=== PATIENT | female | born 1975 | race Two or more races ===

== ENCOUNTER 2020-06-22 09:34 | Outpatient (CLI) | payer OTHER | END 2020-06-22 09:38 | disposition home or self-care (01) | LOC: SONOGRAMA 09:34 | PROVIDERS: ATTEND Pathology Anatomic Pathology & Clinical Pathology | DX: E04.2 Nontoxic multinodular goiter (principal) ==

== ENCOUNTER 2023-06-22 18:13 | Emergency (ER) | payer OTHER ==
[~2023-06-22] VITALS: Ht 167.6 cm; Wt 90.7 kg
[~2023-06-22 18:13] MED LIST: NIFEDIPINE20 MG PO
[2023-06-22] MEDS ORDERED: DEXAMETHASONE SODIUM PHOSPHATE 4 MG/ML VIAL IM ONE (20:30)
[2023-06-22] MEDS ORDERED: CEFTRIAXONE SODIUM 1,000 MG VIAL IM ONE (20:30)
== END 2023-06-22 22:32 | disposition home or self-care (01) ==
LOC: ER 18:13
DX: J35.8 Other chronic diseases of tonsils and adenoids (principal); Z88.6 Allergy status to analgesic agent